=== PATIENT | female | born 1990 | race Caucasian/White ===

== ENCOUNTER 2018-10-31 19:10 | Emergency (ER) | payer BC ==
[~2018-10-31] VITALS: Ht 157.5 cm; Wt 84.8 kg
[2018-10-31 19:48] VITALS: Ht 157.5 cm; Wt 84.8 kg
[2018-11-01 01:18] VITALS: BP 114/73
== END 2018-11-01 01:18 | disposition home or self-care (01) ==
LOC: ED 19:10
DX: S16.1XXA Strain of muscle, fascia and tendon at neck level, initial encounter (principal); S39.012A Strain of muscle, fascia and tendon of lower back, initial encounter; R10.31 Right lower quadrant pain; R10.32 Left lower quadrant pain; V43.52XA Car driver injured in collision with other type car in traffic accident, initial encounter; Y93.I9 Activity, other involving external motion; Y92.411 Interstate highway as the place of occurrence of the external cause; Y99.8 Other external cause status
CPT/HCPCS: J1885